=== PATIENT | female | born 1990 | race Caucasian/White ===

== ENCOUNTER 2021-02-21 08:42 | Emergency (ER) | payer BC, SELFPAY ==
[2021-02-21 08:45] VITALS: BP 132/102; PULSE 97; RESP 20; TEMP 36.8; O2SAT 99; BMI 21.4
[2021-02-21 09:14] LABS: Basophils # 0.2 K/mm3 (0-0.2); Eosinophils # 0.1 K/mm3 (0.0-0.4); Eosinophils % 1.3 % (0.1-12.0); Hematocrit 45.6 % (37.0-47.0); Hemoglobin 14.6 g/dL (12.2-16.2); Lymphocytes # 1.5 K/mm3 (0.7-4.5); Lymphocytes % 17.4 % (10-50); Mean Corpuscular HGB Conc 32.1 g/dL (31.8-35.4); Mean Corpuscular Hemoglobin 31.5 pg (27.0-31.2); Mean Corpuscular Volume 98.1 fl (81-99); Monocytes # 0.6 K/mm3 (0.1-1.0); Monocytes % 7.1 % (1.7-9.3); Neutrophils # 6.3 K/mm3 (1.8-7.8); Neutrophils % 72.1 % (37.0-80.0); Platelet Count 245 K/mm3 (142-424); Red Blood Count 4.65 M/mm3 (4.20-5.40); Red Cell Distribution Width 12.9 % (11.5-17.5); White Blood Count 8.7 K/mm3 (4.8-10.8)
--- NOTE | 2021-02-21 09:15 | [facility].EDGENADL ---
ED Disposition Clinical Impression: Gastroenteritis Disposition: Home, Self-Care Condition on Discharge: Good Instructions: Diarrhea Additional Instructions: Please follow up with your primary care physician in 2-3 days for further management. Please continue to drink plenty of water and eat 3 balanced meals. Please use the zofran as prescribed. Please use tylenol and ibuprofen for pain control. Please give your primary care a stool sample during your next visit and have repeat urine collection to ensure small amount of blood in urine was from menstrual cycle. Please return for bloody stools, inability to eat and drink, worsening abdominal pain, difficulty breathing, chest pain or any other concerning symptoms. Prescriptions: ondansetron HCL [Zofran 4mg Tab*] 4 mg PO TIDP PRN #20 tab PRN Reason: Nausea Prescription Printed ondansetron HCL [Zofran 4mg Tab*] 4 mg PO TIDP PRN #20 tab PRN Reason: Nausea And Vomiting Referrals: Michelle Oliveira [Primary Care Provider] - Time of Disposition: 10:00 - Critical Care Critical Care Time: No Attestation: On 02/21/21, the high probability of a clinically significant, sudden or life threatening deterioration of the following system(s) required my full and direct attention, intervention and personal management. The time I documented below is in addition to time spent performing reported procedures but includes the following listed in this critical care notation. Medical Decision Making - Medical Records Medical records reviewed: Yes: I reviewed the patient's medical records. - Devin Inquiry Pt receiving controlled substance: No Vital Signs: 02/21/21 08:45 02/21/21 09:59 02/21/21 10:32 Temperature 98.2 F 98 F Temperature Source Oral Oral Pulse Rate 82 78 Pulse Rate [Right Radial] 97 H Respiratory Rate 20 16 Blood Pressure 118/89 122/74 Blood Pressure [Right Arm] 132/102 H Blood Pressure Mean [Right Arm] 112 Blood Pressure Source [Right Arm] Automatic Cuff Blood Pressure Position Sitting Blood Pressure Position [Right Arm] Sitting 02 Sat by Pulse Oximetry 99 99 Oxygen Delivery Method Room Air Room Air - Lab Data Lab results reviewed: Yes: I reviewed the patient's lab results. Lab Results 02/21/21 09:10: WBC 8.7, RBC 4.65, Hgb 14.6, Hct 45.6, MCV 98.1, MCH 31.5 H, MCHC 32.1, RDW 12.9, Plt Count 245, MPV 8.0, Neut % (Auto) 72.1, Lymph % (Auto) 17.4, [place] % (Auto) 7.1, Eos % (Auto) 1.3, Baso % (Auto) 2.0, Neut # (Auto) 6.3, Lymph # (Auto) 1.5, [place] # (Auto) 0.6, Eos # (Auto) 0.1, Baso # (Auto) 0.2 02/21/21 09:10: Sodium 136, Potassium 3.9, Chloride 103, Carbon Dioxide 27, Anion Gap 9.9, BUN 5 L, Creatinine 0.80, Estimated Creat Clear 90, Estimated GFR 83, Est GFR ( Amer) 101, Glucose 92, Calcium 9.1, Total Bilirubin 0.2, AST 46 H, ALT 17, Alkaline Phosphatase 69, Total Protein 7.2, Albumin 4.2, Globulin 3.0, Albumin/Globulin Ratio 1.4 02/21/21 09:10: Serum HCG, Qual Negative 02/21/21 09:10: Lactate 0.5 L 02/21/21 09:17: Urine Color Yellow, Urine Appearance Clear, Urine pH 5.0, Ur Specific [place] >= 1.030, Urine Protein Negative, Urine Glucose (UA) Negative, Urine Ketones Negative, Urine Blood 3+, Urine Nitrate Negative, Urine Bilirubin Negative, Urine Urobilinogen 0.2, Ur Leukocyte Esterase Negative, Urine RBC 20-50, Urine WBC 3-5, Ur Squamous Epith Cells 3-5, Urine Bacteria None Result diagrams: 02/21/21 09:10 02/21/21 09:10 Orders (Tests/Meds): ED MEDICATIONS Discontinued Medications Generic Name Dose Route Start Last Admin Trade Name Freq PRN Reason Stop Dose Admin Acetaminophen 1,000 mg 02/21/21 09:40 02/21/21 10:24 Acetaminophen 500mg Tab PO 02/21/21 09:41 1,000 mg ONCE ONE Administration Sodium Chloride 1,000 mls @ 999 mls/hr 02/21/21 09:36 02/21/21 09:38 Sod Chlor 0.9% 1000ml Bag IV 02/21/21 10:36 999 mls/hr .Q1H1M ONE Administration Ondansetron HCl 4 mg 02/21/21 09:40 02/21/21 10:23 Ondansetron
--- NOTE | 2021-02-21 09:17 | PC.NURSE ---
Urine sent to lab at this time.
[2021-02-21 09:19] LABS: Appearance,Urine CLEAR (Clear); Bilirubin,Urine Negative (Negative); Blood, Urine 3+ (Negative); Color,Urine YELLOW (Yellow); Glucose,Urine (UA) Negative (Negative); Ketones,Urine Negative (Negative); Leukocyte Esterase,Urine Negative (Negative); Microscopic, Urine URINE MICROSCOPIC (MICROSCOPIC); Nitrate,Urine Negative (Negative); Protein,Urine Negative (Negative); Specific Gravity, Urine >= 1.030 (1.005-1.030); Urobilinogen,Urine 0.2 EU/dl (0.2)
[2021-02-21 09:25] LABS: Alanine Aminotransferase 17 U/L (12-78); Albumin Level 4.2 g/dl (3.5-5.0); Albumin/Globulin Ratio 1.4 (1.1-1.8); Alkaline Phosphatase 69 U/L (38-126); Anion Gap 9.9 mEq/L (5-15); Aspartate Amino Transferase 46 U/L (14-36); Bilirubin,Total 0.2 mg/dl (0.2-1.3); Blood Urea Nitrogen 5 mg/dl (7-17); Calcium 9.1 mg/dl (8.4-10.2); Carbon Dioxide 27 mmol/L (22.0-30.0); Chloride 103 mmol/L (98-107); Creatinine Clearance Estimated 90 mL/min (50-200); Estimated Glomerular Filt Rate 83 ml/min (>60); GFR (African American) 101 ML/MIN (>60); Glucose 92 mg/dl (74-100); HCG Qualitative, Serum Negative (Negative); Potassium 3.9 mmoL/L (3.5-5.1); Sodium 136 mmol/L (136-145); Total Protein,Serum 7.2 g/dl (6.3-8.2)
[2021-02-21 09:26] LABS: Lactic Acid 0.5 mmol/L (0.7-2.1)
[2021-02-21 09:34] LABS: RBC,Urine 20-50 #/hpf (0-3)
[2021-02-21 09:59] VITALS: BP 118/89; PULSE 82; O2SAT 99
[2021-02-21 10:32] VITALS: BP 122/74; PULSE 78; RESP 16; TEMP 36.6; O2SAT 98
== END 2021-02-21 10:33 | disposition home or self-care (01) ==
PROVIDERS: Emergency Provider Student in an Organized Health Care Education/Training Program; PCP Nurse Practitioner Family
DX: K52.9 Noninfective gastroenteritis and colitis, unspecified (principal); Z88.2 Allergy status to sulfonamides
CPT/HCPCS: 80053; 81001; 83605; 84703; 85025; 96365; 99282

== ENCOUNTER 2023-03-06 08:26 | Outpatient (CLI) | payer BC, SELFPAY ==
--- NOTE | 2023-03-06 08:34 | US_ITS ---
FINAL REPORT CLINICAL HISTORY: ABD PAIN COMPARISON: None FINDINGS: The gallbladder shows no wall thickening, distention or stone disease. No biliary ductal dilatation is appreciated. No fluid collections are seen. The liver is unremarkable in appearance without evidence of focal mass or ductal dilatation. The kidneys failed to reveal any evidence of hydronephrosis or perinephric fluid. IMPRESSION: Unremarkable upper abdominal ultrasound. Reviewed, Interpreted and Dictated by Nereida Thorpe MD Transcribed by Sera Mcneal Authenticated and [facility]
== END 2023-03-06 23:59 ==
LOC: RAD 08:27
PROVIDERS: PCP Nurse Practitioner Family; Visit Provider Nurse Practitioner Family
DX: R10.9 Unspecified abdominal pain (principal)
CPT/HCPCS: 76700